=== PATIENT | female | born 2000 | race Caucasian/White ===

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

== ENCOUNTER 2022-06-26 11:36 | Outpatient (CLI) | payer OTHER, SELFPAY ==
[2022-06-26 12:35] LABS: Influenza A QL RT-PCR Positive (Negative); Influenza B QL RT-PCR Negative (Negative); SARS-CoV-2 RNA PCR Negative (Negative)
== END 2022-06-26 11:37 | disposition home or self-care (01) ==
PROVIDERS: PCP Nurse Practitioner Family; Visit Provider Nurse Practitioner Family
DX: J06.9 Acute upper respiratory infection, unspecified (principal); Z20.822 Contact with and (suspected) exposure to COVID-19
CPT/HCPCS: 87636

== ENCOUNTER 2024-02-05 11:24 | Emergency (ER) | payer OTHER, SELFPAY ==
[2024-02-05 11:32] VITALS: BP 141/69; PULSE 105; RESP 16; TEMP 36.9; O2SAT 100
--- NOTE | 2024-02-05 12:01 | ED.EYEPROB ---
HPI - Eye Problem General Chief complaint: Eye Problems Stated complaint: Pain in corner of right eye Time Seen by Provider: 02/05/24 11:51 Source: patient and RN notes reviewed Mode of arrival: ambulatory Limitations: no limitations History of Present Illness HPI Narrative: Patient presents today complaining of a possible corneal abrasion to the right lateral eye comes 3-4 days. She has had some watering as well. Denies vision changes. She does not were contacts, but does occasionally wear glasses. Currently rates her pain 7/10. She has been using some [id number] eyedrops with short-term relief. Related Data Allergies Allergy/AdvReac Type Severity Reaction Status Date / Time No Known Allergies Allergy Verified 02/22/22 07:20 Review of Systems Review of Systems: CONSTITUTIONAL: Denies body aches, fever, chills, or sweats. EYES: Denies visual changes, redness, or discharge.+ right eye irritation ENT: Denies rhinorrhea, congestion, sore throat, or otalgia. CARDIOVASCULAR: Denies chest pain, palpitations, or edema. RESPIRATORY: Denies cough or dyspnea. GASTROINTESTINAL: Denies abdominal pain, nausea, vomiting, or diarrhea. GENITOURINARY: Denies dysuria or hematuria. SKIN: Denies rash, itching, or wounds. MUSCULOSKELETAL: Denies back pain, joint pain, or myalgia. NEUROLOGIC: Denies headache, numbness, tingling, or weakness. PSYCH: Denies depression or anxiety. [facility] Past Medical History Medical History (Updated 02/05/24 @ 12:05 by Carissa Brown, [facility], ) Depression KATERIN (generalized anxiety disorder) Family History Family History Mother Hypertension Anxiety Social History Social History Smoking status: Never smoker Alcohol intake: never Substance use: current Substance use type: does not use Living arrangements: with family Additional living arrangements comments: parents Occupation/Education: student Gender identity (if verbalized by the patient): Female Comments At time of signature, I have reviewed and agree with nursing past medical, surgical, social and family history unless otherwise noted. Please see nursing chart for further information. There is no relevant family history pertinent to the presenting complaint Exam Narrative: GENERAL: Well-appearing, well-nourished, and in no acute distress. HEAD: Normocephalic, atraumatic. EYES: EOMI. PERRL. Left eye normal. Right eye slightly injected laterally. Lids and lashes normal. See procedure note. ENT: Mucous membranes pink and moist. NECK: Normal AROM. CHEST: No respiratory distress. EXTREMITIES: Normal range of motion. No edema. SKIN: Warm, dry, no rash. Capillary refill normal. Normal skin turgor. NEURO: No focal deficits. Alert and oriented x3. Gait steady. PSYCH: Normal affect. No signs of depression or anxiety. Course Course Level of Care: Express Care Visit Vital Signs Vital signs: Vital Signs Temperature 98.5 F 02/05/24 11:32 Pulse Rate 105 H 02/05/24 11:32 Respiratory Rate 16 02/05/24 11:32 Blood Pressure 141/69 H 02/05/24 11:32 Pulse Oximetry 100 02/05/24 11:32 Oxygen Delivery Room Air 02/05/24 11:32 Temperature 98.5 F 02/05/24 11:32 Pulse Rate 105 H 02/05/24 11:32 Respiratory Rate 16 02/05/24 11:32 Blood Pressure 141/69 H 02/05/24 11:32 Pulse Oximetry 100 02/05/24 11:32 Oxygen Delivery Room Air 02/05/24 11:32 Reviewed Procedures Other Procedure Procedure 1: Other Procedure: Right eye was anesthetized with 1 drop of tetracaine and anesthesia was achieved. The eye was flushed with eye wash. Lid was inverted and examined. Moistened Qtip was used to sweep underneath the upper eyelid with 0 foreign bodies resulting. Cornea was dyed with fluorescein and 0 abrasions or ulcerations were noted. Pt tolerated procedur
== END 2024-02-05 12:10 | disposition home or self-care (01) ==
PROVIDERS: Emergency Provider Nurse Practitioner; PCP Family Medicine
DX: H57.11 Ocular pain, right eye (principal)
CPT/HCPCS: 99213; A9270; G0463